=== PATIENT | male | born 1985 | race Caucasian/White ===

== ENCOUNTER 2022-02-24 09:59 | Emergency (ER) | payer MEDICAID ==
[~2022-02-24] VITALS: Ht 175.3 cm; Wt 94.8 kg
[2022-02-24 10:09] VITALS: BP 147/102
--- NOTE | 2022-02-24 10:16 | NUR ---
PT AMB TO BED 8.
--- NOTE | 2022-02-24 10:26 | NUR ---
37 Y/O M BIB SELF C/O TONGUE PAIN 8/ FOR 4 DAYS. PT TOOK TYLENOL FOR PAIN THIS MORNING WITH NO RELIEF. NKA OR PMH
[2022-02-24] MEDS ORDERED: [UNRECOGNIZED DRUG - CODE] MM (11:29)
[2022-02-24] MEDS ORDERED: ACET-8386 PO (11:29)
[2022-02-24 11:40] VITALS: BP 160/92
--- NOTE | 2022-02-24 11:42 | NUR ---
Patient discharged with v/s stable. Written and verbal after care instructions given and explained. Patient alert, oriented and verbalized understanding of instructions. Ambulatory with steady gait. All questions addressed prior to discharge. ID band removed. Patient advised to follow up with PMD. Rx of HYDROCODONE/ACETAMINOPHEN, TRIAMCINOLONE ACETONIDE given. Opportunity to ask questions provided and answered.
== END 2022-02-24 11:40 | disposition home or self-care (01) ==
LOC: MED 09:59
DX: K14.0 Glossitis (principal); F15.90 Other stimulant use, unspecified, uncomplicated; Z79.899 Other long term (current) drug therapy
CPT/HCPCS: 99283

== ENCOUNTER 2022-02-25 15:11 | Emergency (ER) | payer MEDICAID ==
[~2022-02-25 15:11] MED LIST: ACET-8386 PO; [UNRECOGNIZED DRUG - CODE] MM
--- NOTE | 2022-02-25 15:22 | NUR ---
NO ANSWER IN LOBBY OR OUTSIDE SURROUNDING AREA.
--- NOTE | 2022-02-25 15:22 | NUR ---
PATIENT LEFT WITHOUT BEING SEEN BY DR. NEAL. NO FURTHER CARE PROVIDED FOR PATIENT.
--- NOTE | 2022-02-25 15:39 | NUR ---
NO ANSWER IN LOBBY OR SURROUNDING AREAS
== END 2022-02-25 15:22 | disposition left against medical advice (07) ==
LOC: MED 15:11
DX: T78.40XA Allergy, unspecified, initial encounter (principal); Z53.21 Procedure and treatment not carried out due to patient leaving prior to being seen by health care provider; X58.XXXA Exposure to other specified factors, initial encounter; Y93.89 Activity, other specified; Y92.89 Other specified places as the place of occurrence of the external cause; Y99.8 Other external cause status

== ENCOUNTER 2022-02-25 16:01 | Emergency (ER) | payer MEDICAID ==
--- NOTE | 2022-02-25 16:27 | NUR ---
CALLED FIRST TIME FOR TRIAGE, NO ANSWER. ELIAZAR MADE AWARE.
--- NOTE | 2022-02-25 16:27 | NUR ---
PATIENT LEFT WITHOUT BEING SEEN BY DR. NEAL. NO FURTHER CARE PROVIDED FOR PATIENT.
--- NOTE | 2022-02-25 16:37 | NUR ---
CALLED SECOND TIME FOR TRIAGE, NO ANSWER. ELIAZAR MADE AWARE.
--- NOTE | 2022-02-25 17:01 | NUR ---
PT CALLED FOR THIRD AND FINAL TIME. NO ANSWER IN LOBBY OR IN SURROUNDING AREAS OUTSIDE
== END 2022-02-25 16:27 | disposition left against medical advice (07) ==
LOC: MED 16:01
DX: Z53.21 Procedure and treatment not carried out due to patient leaving prior to being seen by health care provider (principal)

== ENCOUNTER 2022-02-25 17:10 | Emergency (ER) | payer MEDICAID ==
--- NOTE | 2022-02-25 17:35 | NUR ---
PATIENT LEFT WITHOUT BEING SEEN FOR 3RD TIME TODAY BY DR. NEAL. NO FURTHER CARE PROVIDED FOR PATIENT.
--- NOTE | 2022-02-25 17:35 | NUR ---
NO ANSWER IN LOBBY OR OUTSIDE
--- NOTE | 2022-02-25 17:47 | NUR ---
PT NOT IN LOBBY OR OUTSIDE, NO ANSWER
== END 2022-02-25 17:35 | disposition left against medical advice (07) ==
LOC: MED 17:10
DX: Z53.21 Procedure and treatment not carried out due to patient leaving prior to being seen by health care provider (principal)

== ENCOUNTER 2022-10-06 02:17 | Emergency (ER) | payer OTHER ==
[~2022-10-06] VITALS: Ht 172.7 cm; Wt 94.0 kg
[~2022-10-06 02:17] MED LIST changes: -ACET-8386 PO; +ACET-8905 PO
[2022-10-06 02:32] VITALS: BP 156/83
--- NOTE | 2022-10-06 02:38 | NUR ---
pt to lobby
--- NOTE | 2022-10-06 04:13 | NUR ---
Patient discharged with v/s stable. Written and verbal after care instructions given and explained. Patient verbalized understanding. Ambulatory with steady gait. All questions addressed prior to discharge. Advised to follow up with PMD.
--- NOTE | 2022-10-06 04:20 | NUR ---
The patient's care was reviewed and supervised by Radha Adkins RN.
== END 2022-10-06 04:13 | disposition home or self-care (01) ==
LOC: MED 02:17
DX: S42.031A Displaced fracture of lateral end of right clavicle, initial encounter for closed fracture (principal); J45.909 Unspecified asthma, uncomplicated; Z79.899 Other long term (current) drug therapy; Z79.891 Long term (current) use of opiate analgesic; V09.9XXA Pedestrian injured in unspecified transport accident, initial encounter; Y93.89 Activity, other specified; Y92.410 Unspecified street and highway as the place of occurrence of the external cause; Y99.8 Other external cause status
CPT/HCPCS: 99282

== ENCOUNTER 2022-11-22 08:25 | Emergency (ER) | payer OTHER ==
[~2022-11-22] VITALS: Ht 175.3 cm; Wt 98.0 kg
[2022-11-22 08:37] VITALS: BP 137/95
--- NOTE | 2022-11-22 08:43 | NUR ---
DIARRHEA X 3 DAYS, WEAKNESS, NAUSEA, ABDOMINAL/GAS PAINS, SUBJECTIVE FEVERS. WAS SEEN AT DIFFERENT ER'S IN THE LAST 48 HOURS BUT HERE TODAY FOR NO RELIEF. PMH: DENIES
--- NOTE | 2022-11-22 08:46 | NUR ---
Patient was wheelchair assisted to bed 2.
[2022-11-22] MEDS ORDERED: NACL 0.9% 1,000 ML IV ONE (09:25)
[2022-11-22] MEDS ORDERED: ONDANSETRON 4 MG/2 ML VIAL IVP ONE (09:25)
[2022-11-22 09:44] LABS: BASOPHILS % (AUTO) 0.3 % (0.0-2.0); EOSINOPHILS % (AUTO) 0.5 % (0.0-4.0); HEMATOCRIT 44.4 % (36-52); HEMOGLOBIN 15.1 g/dL (12.0-18.0); LYMPHOCYTES # (AUTO) 1.5 K/uL (2.0-11.5); LYMPHOCYTES % (AUTO) 15.9 % (20.5-51.1); MEAN CORPUSCULAR HEMOGLOBIN 28 pg (27-31); MEAN CORPUSCULAR HGB CONC 34 g/dL (33-37); MEAN CORPUSCULAR VOLUME 83.4 fL (80-94); MONOCYTES # (AUTO) 0.8 K/uL (0.8-1.0); MONOCYTES % (AUTO) 9.1 % (1.7-9.3); NEUTROPHILS # (AUTO) 6.8 K/uL (1.8-7.7); NEUTROPHILS % (AUTO) 74.2 % (42.2-75.2); PLATELET COUNT (AUTO) 198 K/uL (140-450); RED BLOOD CELL COUNT(AUTO) 5.32 MIL/uL (4.20-6.10); RED CELL DISTRIBUTION WIDTH 14.3 % (11.6-13.7); WHITE BLOOD COUNT (AUTO) 9.1 K/uL (4.8-10.8)
[2022-11-22 10:03] LABS: ALBUMIN 3.2 g/dL (3.4-5.0); ANION GAP 10.5 (8-16); CARBON DIOXIDE 27.9 mmol/L (21-32); CREATININE 0.8 mg/dL (0.6-1.3); POTASSIUM 3.4 mmol/L (3.5-5.1)
--- NOTE | 2022-11-22 12:20 | NUR ---
Patient discharged with v/s stable. Written and verbal after care instructions given and explained. Patient verbalized understanding. Ambulatory with steady gait. All questions addressed prior to discharge. Advised to follow up with PMD. no diarrhea episodes or incontinence noted while in the ED
[2022-11-22 12:41] VITALS: BP 132/76
== END 2022-11-22 12:41 | disposition home or self-care (01) ==
LOC: MED 08:25
DX: B34.9 Viral infection, unspecified (principal); Z20.822 Contact with and (suspected) exposure to COVID-19; R19.7 Diarrhea, unspecified; J45.909 Unspecified asthma, uncomplicated; Z79.899 Other long term (current) drug therapy
CPT/HCPCS: 36415; 80053; 83690; 85025; 87426; 87804; 96361; 96374; 99283; J2405